=== PATIENT | female | born 1990 | race Caucasian/White ===

== ENCOUNTER → 2018-08-30 08:16 | Outpatient (CLI) | payer OTHER ==
[2009-05-27 00:52] VITALS: BMI 31.1
== END | disposition home or self-care (01) ==
LOC: D.HCCARDIO 08:16
PROVIDERS: ATTEND Internal Medicine Cardiovascular Disease
DX: R60.9 Edema, unspecified (principal)

== ENCOUNTER → 2018-09-05 16:55 | Outpatient (CLI) | payer OTHER ==
[2009-05-27 00:52] VITALS: BMI 31.1
[2018-09-05 17:31] LABS: ALBUMIN 3.4 g/dL (3.4-5.0); ALKALINE PHOSPHATASE 75 U/L (46-116); ALT (SGPT) 19 U/L (10-68); CALC OSMOLALITY 278 mosm/kg (275-300); CALCIUM 8.6 mg/dL (8.5-10.1); CARBON DIOXIDE 25.6 mmol/L (21.0-32.0); CHLORIDE - SERUM 104 mmol/L (98-107); CREATININE - SERUM 0.9 mg/dL (0.6-1.3); GLUCOSE 118 mg/dL (74-106); POTASSIUM - SERUM 3.9 mmol/L (3.5-5.1); PROTEIN - SERUM 6.9 g/dL (6.4-8.2); SODIUM 139 mmol/L (136-145); UREA NITROGEN 13 mg/dL (7-18); eGFR NON AFRICAN AMERICAN 78 mL/min (90-120)
== END | disposition home or self-care (01) ==
LOC: D.LABREF 16:55
PROVIDERS: ATTEND Nurse Practitioner
DX: I10 Essential (primary) hypertension (principal); R60.9 Edema, unspecified

== ENCOUNTER → 2019-11-28 10:34 | Outpatient (CLI) | payer MEDICAID ==
[2009-05-27 00:52] VITALS: BMI 31.1
== END | disposition home or self-care (01) ==
LOC: D.MRI 10:34
PROVIDERS: ATTEND Orthopaedic Surgery
DX: M54.16 Radiculopathy, lumbar region (principal)